=== PATIENT | male | born 1990 | race Asian ===

== ENCOUNTER 2016-11-16 20:34 | Emergency (ER) | payer MEDICAID, OTHER ==
[2016-11-16 20:42] VITALS: TEMP 97.7
[2016-11-16] MEDS ORDERED: NS 1,000 ML IV ONE (20:55)
[2016-11-16 21:03] LABS: % IMMATURE GRANULYOCYTES 0.1 % (0.0-1.1); ABSOLUTE IMMATURE GRANULOCYTES 0.01 10^3/uL (0.00-0.10); ADD DIFF? NO; ADD MORPH? NO; ADD SCAN? NO; ATYPICAL LYMPHOCYTE FLAG 0 (0-99); FRAGMENT RBC FLAG 0 (0-99); HEMATOCRIT 47.4 % (40.0-51.0); HEMOGLOBIN 16.1 g/dL (13.7-17.5); LEFT SHIFT FLG 0 (0-99); LIPEMIA HEMOLYSIS FLAG 90 (0-99); MEAN CELL HEMOGLOBIN 31.9 pg (27.9-34.1); MEAN PLATELET VOLUME 10.5 fL (8.7-11.7); PLATELET CLUMPS FLAG 0 (0-99); PLATELET COUNT 218 10^3/uL (150-400); RED BLOOD CELL COUNT 5.04 10^6/uL (4.40-6.38); RED CELL DISTRIBUTION WIDTH 12.3 % (11.5-15.2)
[2016-11-16 21:12] LABS: ANION GAP 12 mEq/L (8-16); CALCIUM 9.1 mg/dL (8.5-10.4); CARBON DIOXIDE 26 mEq/l (22-31); CHLORIDE 102 mEq/L (97-110); CREATININE 1.1 mg/dL (0.7-1.3); GLOMERULAR FILTRATION RATE > 60; GLUCOSE 104 mg/dL (70-100); POTASSIUM 4.2 mEq/L (3.5-5.2); SODIUM 140 mEq/L (134-144)
[2016-11-16 21:32] VITALS: RESP 16
--- NOTE | 2016-11-16 21:37 | EDPHY ---
H & P Stated Complaint: 2 days of central abdominal pain and bloating, small solid BMs Source: Patient Exam Limitations: No limitations - Personal History Current Tetanus/Diphtheria Vaccine: Yes Current Tetanus Diphtheria and Acellular Pertussis (TDAP): Yes Tetanus Vaccine Date: 2015 - Medical/Surgical History Hx Asthma: No Hx Chronic Respiratory Disease: No Hx Diabetes: No Hx Cardiac Disease: No Hx Renal Disease: No Hx Cirrhosis: No Hx Alcoholism: No Hx HIV/AIDS: No Hx Splenectomy or Spleen Trauma: No Other PMH: follicolitis. bilateral labrum repairs, left clavicle repair - Social History Smoking Status: Never smoked Time Seen by Provider: 11/16/16 20:54 HPI/ROS: CHIEF COMPLAINT: abdominal pain HISTORY OF PRESENT ILLNESS: 26-year-old male presents emergency department complaining of abdominal pain that started yesterday after eating lunch the consisted of a hamburger and a donate. Patient reports his abdominal pain was periumbilical, sharp in nature. He states he felt some cramping and felt like he had to have a bowel movement but was unable to go. Patient states today his pain has moved in localized to his right lower quadrant, it became worse after eating dinner tonight which was roasted chicken and roasted potatoes. No nausea , vomiting or diarrhea. Patient reports he has had 2 small bowel movements today. No history of abdominal pain. Patient to feels like his abdomen is bloated. Patient denies urinary urgency, frequency or dysuria. REVIEW OF SYSTEMS: A comprehensive 10 point review of systems is otherwise negative aside from elements mentioned in the history of present illness. (Lisa Warren) - Physical Exam Exam: Physical Exam Gen: Alert and Oriented, NAD HEENT: PERRL, moist mucous membranes NECK: no meningismus CV: regular rate and regular rhythm PULM: CTAB, no wheezes ABDOMEN: soft, mild periumbilical, right upper quadrant and right lower quadrant tenderness to palpation, no rebound tenderness, negative Rovsing's, BS present BACK: No CVA tenderness NEURO: Neurologically grossly intact EXTREMITIES: normal appearing SKIN: no rash or break in skin on exposed skin PSYCH: answers questions appropriately. (Lisa Warren) Constitutional: Initial Vital Signs Temperature (C) 36.5 C 11/16/16 20:40 Heart Rate 48 L 11/16/16 20:40 Respiratory Rate 12 02/02/17 20:40 Blood Pressure 135/59 H 11/16/16 20:40 O2 Sat (%) 96 11/16/16 20:40 O2 Delivery Mode Room Air Allergies/Adverse Reactions: No Known Allergies Allergy (Unverified 06/27/13 15:54) Home Medications: Medication Instructions Recorded Supplements 06/27/13 Doxycycline Hyclate 11/16/16 Medical Decision Making - Diagnostics Imaging: Right lower quadrant ultrasound- Findings: The visible portions of the appendix are normal, with limited visualization of the distal appendix. There is no free fluid. Impression: Incomplete visualization of the appendix with normal ultrasound appearance of the visualized portions of the appendix. Findings discussed with Lisa Warren today at 2242 hours. Dictated By: Tigre Dewey MD Right upper quadrant ultrasound- Impression: Normal right upper quadrant ultrasound. Findings discussed with Lisa Warren today at 2242 hours. Dictated By: Tigre Dewey MD (Lisa Warren) ED Course/Re-evaluation: I evaluated and participated in the management of the patient. I also evaluated the patient independently. My co-signature indicates that I have reviewed this chart and I agree with the findings and plan of care as documented. My personal H&P findings include: The patient presents to the ED with a 2 day history of abdominal pain. The patient denies fever, he denies diarrhea, he denies vomiting. He denies prior history of the symptoms. General Appearance: Alert, no distress Eyes: Pupils equal and round no pallor or injection ENT, Mouth: Mucous membranes moist Respiratory: There are no retractions, lungs are clear to auscultation Cardiovascular: Regular rate and rhythm Gastrointestinal: Tenderness to palpation is noted in the right lower quadrant , no peritoneal signs Neurological: A&O, normal motor function, normal sensory exam, normal cranial nerves Skin: Warm and dry, no rashes Musculoskeletal: Neck is supple nontender Extremities: symmetrical, full range of motion Abdominal ultrasound demonstrates a normal appearing appendix. Unable to fully visualize the tip of the appendix. Patient was reexamined. He is well-appearing. He is afebrile. At this point time the clinical suspicion for acute appendicitis is low. Patient does understand that we cannot fully exclude this disease. The patient will be discharged to home with instructions return to the ED in 8-12 hours for recheck to ensure that appendicitis is not developing. (Martell Desir) IV established, CBC, chemistry panel and urinalysis ordered, patient has tenderness in his right upper quadrant and right lower quadrant, ultrasound has been ordered to evaluate for cholecystitis and appendicitis. CBC and chemistry panel are unremarkable, urine dip is negative for leukocytes, nitrites or blood. Ultrasound of both right upper quadrant and right lower quadrant have been performed, right upper quadrant ultrasound is normal, right lower quadrant ultrasound shows no fat stranding, no evidence of free fluid, the majority of the appendix is seen and is normal though they are unable to see the very tip of the appendix. Patient is afebrile, has no white blood cell count, he continues with mild tenderness in his right lower and right upper quadrant. Appendicitis cannot be ruled out. I discussed getting a CT scan for definitive diagnosis. The patient would like to go home and return for worsening symptoms. Patient is given strict instructions to return for any worsening pain and to return in 12 hours for re-evaluation and a continues to have abdominal pain. The patient and mother are comfortable with this plan. (Lisa Warren) Differential Diagnosis: The differential diagnosis for the patient's abdominal pain included but was not limited to appendicitis, cholecystitis, hernias, testicular torsion, gastritis, and urinary tract infection. (Lisa Warren) - Data Points Laboratory Results: Laboratory Results 11/16/16 20:50 11/16/16 20:50 11/16/16 20:50 WBC 8.41 10^3/uL (3.80-9.50) RBC 5.04 10^6/uL (4.40-6.38) Hgb 16.1 g/dL (13.7-17.5) Hct 47.4 % (40.0-51.0) MCV 94.0 fL (81.5-99.8) MCH 31.9 pg (27.9-34.1) MCHC 34.0 g/dL (32.4-36.7) RDW 12.3 % (11.5-15.2) Plt Count 218 10^3/uL (150-400) MPV 10.5 fL (8.7-11.7) Neut % (Auto) 64.4 % (39.3-74.2) Lymph % (Auto) 26.4 % (15.0-45.0) [place] % (Auto) 5.5 % (4.5-13.0) Eos % (Auto) 3.1 % (0.6-7.6) Baso % (Auto) 0.5 % (0.3-1.7) Nucleat RBC Rel Count 0.0 % (0.0-0.2) Absolute Neuts (auto) 5.42 10^3/uL (1.70-6.50) Absolute Lymphs (auto) 2.22 10^3/uL (1.00-3.00) Absolute Monos (auto) 0.46 10^3/uL (0.30-0.80) Absolute Eos (auto) 0.26 10^3/uL (0.03-0.40) Absolute Basos (auto) 0.04 10^3/uL (0.02-0.10) Absolute Nucleated RBC 0.00 10^3/uL (0-0.01) Immature Gran % 0.1 % (0.0-1.1) Immature Gran # 0.01 10^3/uL (0.00-0.10) Sodium 140 mEq/L (134-144) Potassium 4.2 mEq/L (3.5-5.2) Chloride 102 mEq/L (97-110) Carbon Dioxide 26 mEq/l (22-31) Anion Gap 12 mEq/L (8-16) BUN 21 mg/dL (7-23) Creatinine 1.1 mg/dL (0.7-1.3) Estimated GFR > 60 Glucose 104 H mg/dL (70-100) Calcium 9.1 mg/dL (8.5-10.4) Medications Given: Discontinued Medications Sodium Chloride (Ns) 1,000 mls @ 0 mls/hr IV ONCE ONE PRN Reason: Wide Open Stop: 11/16/16 20:56 Last Admin: 11/16/16 21:04 Dose: 1,000 mls Departure - Departure Disposition: Home, Routine, Self-Care Clinical Impression: Abdominal pain Qualifiers: Abdominal location: right lower quadrant Qualifier Code: (R10.31) Right lower quadrant pain Condition: Good Instructions: Abdominal Pain (ED) Additional Instructions: Sometimes we are unable to diagnose an obvious cause of abdominal pain in the Emergency Department. Based upon our evaluation today, we see no obvious explanation for your pain. Because more serious conditions can be difficult to diagnose early in the course of their presentation, we ask that you return to the Emergency Department in 8-12 hours for a recheck if you are still having pain. This is necessary to exclude the development of a more serious condition such as appendicitis or other intra-abdominal emergency. In the event your pain markedly increases before that time or you develop intractable vomiting or fever return to the Emergency Department immediately. Referrals: Narda Higgins MD [Medical Doctor] - As per Instructions
--- NOTE | 2016-11-16 22:44 | US ---
Limited Right Upper Quadrant Ultrasound History: Right-sided abdominal pain. Comparison: None available. Findings: The liver has normal echotexture and contour. There is no intrahepatic biliary dilatation. The common bile duct measures 2 mm and is normal. The gallbladder is normal. The right kidney measure s 10.1 cm and has normal echotexture and contour without hydronephrosis. The visible aorta is normal caliber with partial obscuration of the aorta by overlying bowel gas. The visible portions of the pa ncreas are normal with limited visualization of the pancreatic head and tail. Limited images of the bladder are normal. Impression: Normal right upper quadrant ultrasound. Findings discussed with Lisa Warren today at 2242 hours.
--- NOTE | 2016-11-16 22:47 | US ---
Appendiceal Ultrasound History: Right lower quadrant pain. Comparison: None available. Technique: Limited ultrasound of the right lower quadrant is performed. Findings: The visible portions of the appendix are normal, with limited visualization of the distal a ppendix. There is no free fluid. Impression: Incomplete visualization of the appendix with normal ultrasound appearance of the visuali zed portions of the appendix. Findings discussed with Lisa Warren today at 2242 hours.
[2016-11-16 23:10] VITALS: BP 114/72; PULSE 81; O2SAT 96
== END 2016-11-16 23:10 | disposition home or self-care (01) ==
DX: R10.31 Right lower quadrant pain (principal)